=== PATIENT | female | born 1945 | race Caucasian/White ===

== ENCOUNTER 2018-12-01 15:54 | Inpatient (IN) ==
[2018-12-01] MEDS ORDERED: SODIUM CHLORIDE 0.9% 500 ML IV STA (16:25)
[2018-12-01 16:43] LABS: Basophils % 0.2 % (0.0-0.8); Eosinophils # 0.1 10*3/uL (0.0-0.87); Eosinophils % 0.8 % (0.00-10.9); Hematocrit 31.4 VOL% (35.7-47.0); Hemoglobin 9.1 GM/DL (12.0-16.0); Immature Granulocytes % 0.6 %; Immature Granulocytes Absolute 0.05 #; Lymphocytes % 22.6 % (21.3-54.2); Mean Corpuscular Hemoglobin 24 PG (27-34); Mean Corpuscular Volume 81.1 FL (87-102); Mean Platelet Volume 9.6 FL (9.6-12.0); Monocytes # 0.7 10*3/uL (0.11-0.8); Monocytes % 7.4 % (1.7-12.7); NRBC # 0.02 10*3/uL; Neutrophils # 6.1 10*3/uL (1.4-7.4); Neutrophils % 68.4 % (38.7-73.9); Platelet Count 253 T/CUMM (130-400); Red Blood Count 3.87 MC/CUMM (3.8-5.5); Red Cell Distribution Width 18.1 % (9.3-17.3); White Blood Count 8.9 T/CUMM (4-12)
[2018-12-01 17:03] LABS: Alanine Aminotransferase 18 U/L (13-56); Albumin 3.8 G/DL (3.4-5.0); Alkaline Phosphatase 96 U/L (45-117); Aspartate Amino Transferase 28 U/L (0-37); Bilirubin,Total < 0.39 MG/DL (0.2-1.0); Blood Urea Nitrogen 59 MG/DL (7-18); Calcium 8.5 MG/DL (8.5-10.1); Glucose 131 MG/DL (74-106); Osmolality,Calculated 275.1 MOS/KG (273-304); Potassium 5.4 MMOL/L (3.5-5.1); Sodium 128 MMOL/L (136-145); Total Protein 8.4 G/DL (6.4-8.3)
[2018-12-01 17:37] LABS: Amorphous Crystals,Urine Occasional /HPF (Few); Apearance,Urine Slightly Hazy (Clear); Bacteria,Urine Few /HPF (Few); Bilirubin,Urine Negative (Negative); Blood, Urine Small mg/dL (Negative); Glucose,Urine (UA) Negative (Negative); Ketones,Urine Negative (Negative); Nitrite,Urine Negative (Negative); Protein,Urine 30 MG/DL; Squamous Epithelial Cell,Urine Occasional /HPF (0-10); Urine Color Yellow (Yellow); Urine Specific Gravity 1.011 (1.001-1.035); Urine Urobilinogen < 2.0 EU/DL (0.2-1.0); WBC,Urine 2 /HPF (0-6)
[2018-12-01] MEDS: ALBUTEROL/IPRATROPIUM 3 ML NEB RESP TX SCH (18:58)
[2018-12-01] MEDS ORDERED: ONDANSETRON 4 MG/2 ML VIAL IV PRN (20:39)
[2018-12-01] MEDS: MEROPENEM 1,000 MG in SODIUM CHLORIDE 0.9% 100 ML IV SCH (22:11)
[2018-12-01] MEDS: SODIUM CHLORIDE 0.9% 1,000 ML IV SCH (22:14)
[2018-12-01] MEDS: ISOSORBIDE MONONITRATE 30 MG TABLET PO SCH ×2 (22:21→22:51)
[2018-12-01] MEDS: methylPREDNISolone SOD SUC 125 MG/2 ML VIAL IV SCH (22:21)
[2018-12-01] MEDS: GABAPENTIN 600 MG TABLET PO SCH (22:27)
[2018-12-01] MEDS: metFORMIN 500 MG TABLET PO SCH (22:27)
[2018-12-01] MEDS: ENOXAPARIN 30 MG/0.3 ML SYRINGE SUBCUT SCH (22:27)
[2018-12-01] MEDS: CARBIDOPA/LEVODOPA 25-100 MG TABLET PO SCH (22:29)
[2018-12-02] MEDS: ALBUTEROL/IPRATROPIUM 3 ML NEB RESP TX SCH ×4 (00:38→19:38)
[2018-12-02 01:10] LABS: Blood Urea Nitrogen 61 MG/DL (7-18); Calcium 8.4 MG/DL (8.5-10.1); Glucose 126 MG/DL (74-106); Osmolality,Calculated 275.1 MOS/KG (273-304); Sodium 128 MMOL/L (136-145); Troponin I < 0.015 NG/ML (0.00-0.045)
[2018-12-02 01:13] LABS: Potassium 6.3 MMOL/L (3.5-5.1)
[2018-12-02 01:22] LABS: Basophils % 0.2 % (0.0-0.8); Eosinophils % 0.4 % (0.00-10.9); Hemoglobin 9.2 GM/DL (12.0-16.0); Immature Granulocytes % 0.8 %; Immature Granulocytes Absolute 0.07 #; Lymphocytes # 0.8 10*3/uL (1.4-4.0); Lymphocytes % 9.7 % (21.3-54.2); Mean Corpuscular HGB Conc 28.2 GM/DL (32-36); Mean Corpuscular Hemoglobin 24 PG (27-34); Mean Corpuscular Volume 83.2 FL (87-102); Monocytes # 0.2 10*3/uL (0.11-0.8); Monocytes % 2.7 % (1.7-12.7); NRBC # 0.05 10*3/uL; Neutrophils # 7.2 10*3/uL (1.4-7.4); Neutrophils % 86.2 % (38.7-73.9); Platelet Count 156 T/CUMM (130-400); Red Blood Count 3.92 MC/CUMM (3.8-5.5); White Blood Count 8.4 T/CUMM (4-12)
[2018-12-02 01:29] LABS: Hematocrit 32.6 VOL% (35.7-47.0)
[2018-12-02] MEDS ORDERED: SODIUM POLYSTYRENE SULFATE 15 GM/60 ML BOTTLE PO ONE ×2 (01:35→09:00)
[2018-12-02] MEDS: methylPREDNISolone SOD SUC 125 MG/2 ML VIAL IV SCH ×3 (04:02→21:23)
[2018-12-02 04:11] LABS: Allen Test Positive
[2018-12-02 04:13] LABS: ABG Base Excess -9.4 MMOL/L (-2.5-2.5); ABG HCO3 16.6 MMOL/L (20-26); ABG PCO2 36.5 MM HG (35-48); ABG PH 7.271 (7.35-7.45); ABG PO2 47.9 MM HG (80-95); ABG TCO2 15.7 MMOL/L (23-27)
[2018-12-02 04:41] LABS: Platelet Estimate Decreased; Polychromasia Few
[2018-12-02] MEDS: LEVOTHYROXINE 50 MCG TABLET PO SCH (06:10)
[2018-12-02] MEDS: MEROPENEM 1,000 MG in SODIUM CHLORIDE 0.9% 100 ML IV SCH ×2 (07:30→21:22)
[2018-12-02] MEDS ORDERED: NON-FORMULARY MEDICATION (Omeprazole [Omeprazole] 20 MG) PO SCH (09:00)
[2018-12-02] MEDS: ASPIRIN EC 81 MG TABLET PO SCH (09:54)
[2018-12-02] MEDS: metFORMIN 500 MG TABLET PO SCH (09:54)
[2018-12-02] MEDS: PARoxetine 20 MG TABLET PO SCH (09:57)
[2018-12-02] MEDS: GABAPENTIN 600 MG TABLET PO SCH ×3 (09:57→21:42)
[2018-12-02] MEDS: CARBIDOPA/LEVODOPA 25-100 MG TABLET PO SCH ×2 (09:57→21:42)
[2018-12-02] MEDS: amLODIPine 5 MG TABLET PO SCH (09:58)
[2018-12-02] MEDS: ISOSORBIDE MONONITRATE 30 MG TABLET PO SCH ×2 (09:58→21:23)
[2018-12-02] MEDS: AMIODARONE 200 MG TABLET PO SCH (09:58)
[2018-12-02] MEDS: PANTOPRAZOLE 40 MG TABLET PO SCH (09:58)
[2018-12-02] MEDS ORDERED: ALBUTEROL/IPRATROPIUM 3 ML NEB RESP TX PRN (11:51)
[2018-12-02] MEDS ORDERED: GLUCAGON 1 MG VIAL IM PRN (11:55)
[2018-12-02] MEDS ORDERED: DEXTROSE 50% 25 GM/50 ML SYRINGE IV PRN (11:55)
[2018-12-02 13:07] LABS: ABG Base Excess -9.9 MMOL/L (-2.5-2.5); ABG HCO3 15.6 MMOL/L (20-26); ABG Oxygen Saturation 96.7 % (95-100); ABG PCO2 32.6 MM HG (35-48); ABG PH 7.298 (7.35-7.45); ABG PO2 101.8 MM HG (80-95); ABG TCO2 16.6 MMOL/L (23-27)
[2018-12-02] MEDS ORDERED: SODIUM CHLORIDE 0.9% 1,000 ML IV ONE (13:18)
[2018-12-02 16:32] LABS: Osmolality,Calculated 283.8 MOS/KG (273-304); Potassium 5.2 MMOL/L (3.5-5.1)
[2018-12-02] MEDS: INSULIN REGULAR 100 UNIT/ML SUBCUT SCH ×2 (18:19→21:23)
[2018-12-02] MEDS: ENOXAPARIN 30 MG/0.3 ML SYRINGE SUBCUT SCH (21:43)
[2018-12-02] MEDS: SODIUM CHLORIDE 23.4% CONC INJ 38.5 MEQ, SODIUM BICARB INJ 100 MEQ in STERILE WATER INJ... IV SCH (21:52)
[2018-12-03] MEDS: ALBUTEROL/IPRATROPIUM 3 ML NEB RESP TX SCH ×4 (01:05→19:10)
[2018-12-03] MEDS: methylPREDNISolone SOD SUC 125 MG/2 ML VIAL IV SCH ×2 (03:50→10:17)
[2018-12-03 05:19] LABS: Calcium 8.3 MG/DL (8.5-10.1); Osmolality,Calculated 284.8 MOS/KG (273-304); Potassium 4.7 MMOL/L (3.5-5.1)
[2018-12-03] MEDS: LEVOTHYROXINE 50 MCG TABLET PO SCH (06:03)
[2018-12-03 09:44] LABS: ABG Base Excess -5.8 MMOL/L (-2.5-2.5); ABG HCO3 19.3 MMOL/L (20-26); ABG Oxygen Saturation 97.6 % (95-100); ABG PCO2 35.9 MM HG (35-48); ABG PH 7.348 (7.35-7.45); ABG PO2 112.5 MM HG (80-95); ABG TCO2 20.4 MMOL/L (23-27); Allen Test Positive
[2018-12-03] MEDS: AMIODARONE 200 MG TABLET PO SCH (10:14)
[2018-12-03] MEDS: CARBIDOPA/LEVODOPA 25-100 MG TABLET PO SCH ×2 (10:15→21:38)
[2018-12-03] MEDS: PANTOPRAZOLE 40 MG TABLET PO SCH (10:15)
[2018-12-03] MEDS: PARoxetine 20 MG TABLET PO SCH (10:15)
[2018-12-03] MEDS: GABAPENTIN 600 MG TABLET PO SCH (10:15)
[2018-12-03] MEDS: ASPIRIN EC 81 MG TABLET PO SCH (10:16)
[2018-12-03] MEDS: amLODIPine 5 MG TABLET PO SCH (10:16)
[2018-12-03] MEDS: INSULIN REGULAR 100 UNIT/ML SUBCUT SCH ×3 (10:16→17:46)
[2018-12-03] MEDS: ISOSORBIDE MONONITRATE 30 MG TABLET PO SCH ×2 (10:16→21:38)
[2018-12-03] MEDS ORDERED: SODIUM CHLORIDE 23.4% CONC INJ 38.5 MEQ, SODIUM BICARB INJ 100 MEQ in STERILE WATER INJ... IV SCH (10:30)
[2018-12-03] MEDS: methylPREDNISolone SOD SUC 40 MG/1 ML VIAL IV SCH ×2 (12:59→22:00)
[2018-12-03] MEDS: CEFEPIME 1,000 MG in SYRINGE 1 EACH IV SCH (13:01)
[2018-12-03] MEDS: TAMSULOSIN 0.4 MG CAPSULE PO SCH (21:38)
[2018-12-03] MEDS: SODIUM CHLORIDE 0.9% 1,000 ML IV SCH (21:38)
[2018-12-03] MEDS: ENOXAPARIN 30 MG/0.3 ML SYRINGE SUBCUT SCH (23:11)
[2018-12-04] MEDS: ALBUTEROL/IPRATROPIUM 3 ML NEB RESP TX SCH ×4 (01:24→19:23)
[2018-12-04 05:42] LABS: Basophils % 0.1 % (0.0-0.8); Immature Granulocytes Absolute 0.07 #; Lymphocytes # 0.4 10*3/uL (1.4-4.0); Lymphocytes % 5.8 % (21.3-54.2); Mean Corpuscular HGB Conc 28.6 GM/DL (32-36); Mean Corpuscular Hemoglobin 23 PG (27-34); Mean Corpuscular Volume 81.2 FL (87-102); Mean Platelet Volume 8.8 FL (9.6-12.0); Monocytes # 0.4 10*3/uL (0.11-0.8); Monocytes % 5.1 % (1.7-12.7); NRBC # 0.06 10*3/uL; Neutrophils # 6.1 10*3/uL (1.4-7.4); Platelet Count 243 T/CUMM (130-400); Red Blood Count 3.45 MC/CUMM (3.8-5.5); Red Cell Distribution Width 18.3 % (9.3-17.3); White Blood Count 6.9 T/CUMM (4-12)
[2018-12-04 05:58] LABS: Calcium 8.7 MG/DL (8.5-10.1); Osmolality,Calculated 286.5 MOS/KG (273-304); Potassium 4.1 MMOL/L (3.5-5.1)
[2018-12-04 06:35] LABS: Hypochromasia 1+; Microcytosis 1+; Platelet Estimate Adequate
[2018-12-04] MEDS: methylPREDNISolone SOD SUC 40 MG/1 ML VIAL IV SCH ×3 (07:57→21:24)
[2018-12-04] MEDS: LEVOTHYROXINE 50 MCG TABLET PO SCH (08:15)
[2018-12-04] MEDS: SODIUM CHLORIDE 0.9% 1,000 ML IV SCH ×3 (10:35→21:22)
[2018-12-04] MEDS: PANTOPRAZOLE 40 MG TABLET PO SCH (13:51)
[2018-12-04] MEDS: PARoxetine 20 MG TABLET PO SCH (13:52)
[2018-12-04] MEDS: CARBIDOPA/LEVODOPA 25-100 MG TABLET PO SCH ×2 (13:52→21:23)
[2018-12-04] MEDS: ASPIRIN EC 81 MG TABLET PO SCH (13:53)
[2018-12-04] MEDS: amLODIPine 5 MG TABLET PO SCH (13:53)
[2018-12-04] MEDS: AMIODARONE 200 MG TABLET PO SCH (13:53)
[2018-12-04] MEDS: ISOSORBIDE MONONITRATE 30 MG TABLET PO SCH ×2 (13:54→21:23)
[2018-12-04] MEDS: CEFEPIME 1,000 MG in SYRINGE 1 EACH IV SCH (13:54)
[2018-12-04] MEDS: FLUCONAZOLE 100 MG TABLET PO SCH (13:54)
[2018-12-04] MEDS: INSULIN REGULAR 100 UNIT/ML SUBCUT SCH ×4 (14:12→21:25)
[2018-12-04] MEDS: ACETAMINOPHEN 325 MG TABLET PO PRN (21:23)
[2018-12-04] MEDS: TAMSULOSIN 0.4 MG CAPSULE PO SCH (21:23)
[2018-12-04] MEDS: NYSTATIN POWDER 15 GM BOTTLE TOP SCH (21:23)
[2018-12-04] MEDS: ENOXAPARIN 30 MG/0.3 ML SYRINGE SUBCUT SCH (21:25)
[2018-12-05] MEDS: ALBUTEROL/IPRATROPIUM 3 ML NEB RESP TX SCH ×4 (00:48→18:40)
[2018-12-05 04:46] LABS: Hematocrit 28.3 VOL% (35.7-47.0); Hemoglobin 8.2 GM/DL (12.0-16.0); Immature Granulocytes % 1.7 %; Immature Granulocytes Absolute 0.12 #; Lymphocytes # 0.4 10*3/uL (1.4-4.0); Lymphocytes % 5.9 % (21.3-54.2); Mean Corpuscular Hemoglobin 24 PG (27-34); Mean Platelet Volume 8.9 FL (9.6-12.0); Monocytes # 0.4 10*3/uL (0.11-0.8); Monocytes % 6.1 % (1.7-12.7); NRBC # 0.08 10*3/uL; Neutrophils # 6.1 10*3/uL (1.4-7.4); Neutrophils % 86.3 % (38.7-73.9); Platelet Count 245 T/CUMM (130-400); Red Blood Count 3.45 MC/CUMM (3.8-5.5); Red Cell Distribution Width 18.3 % (9.3-17.3); White Blood Count 7.1 T/CUMM (4-12)
[2018-12-05 05:06] LABS: Calcium 8.7 MG/DL (8.5-10.1); Osmolality,Calculated 286.1 MOS/KG (273-304); Potassium 4.3 MMOL/L (3.5-5.1)
[2018-12-05] MEDS: LEVOTHYROXINE 50 MCG TABLET PO SCH (06:36)
[2018-12-05] MEDS: SODIUM CHLORIDE 0.9% 1,000 ML IV SCH ×3 (07:52→23:17)
[2018-12-05] MEDS: INSULIN REGULAR 100 UNIT/ML SUBCUT SCH ×4 (09:30→22:12)
[2018-12-05] MEDS: PARoxetine 20 MG TABLET PO SCH (09:31)
[2018-12-05] MEDS: PANTOPRAZOLE 40 MG TABLET PO SCH (09:31)
[2018-12-05] MEDS: CARBIDOPA/LEVODOPA 25-100 MG TABLET PO SCH ×2 (09:31→22:12)
[2018-12-05] MEDS: ASPIRIN EC 81 MG TABLET PO SCH (09:31)
[2018-12-05] MEDS: ISOSORBIDE MONONITRATE 30 MG TABLET PO SCH ×2 (09:31→22:12)
[2018-12-05] MEDS: amLODIPine 5 MG TABLET PO SCH (09:31)
[2018-12-05] MEDS: AMIODARONE 200 MG TABLET PO SCH (09:31)
[2018-12-05] MEDS: methylPREDNISolone SOD SUC 40 MG/1 ML VIAL IV SCH ×2 (09:32→22:13)
[2018-12-05] MEDS: FLUCONAZOLE 100 MG TABLET PO SCH (09:32)
[2018-12-05] MEDS: NYSTATIN POWDER 15 GM BOTTLE TOP SCH ×2 (09:32→22:54)
[2018-12-05] MEDS: CEFEPIME 1,000 MG in SYRINGE 1 EACH IV SCH (12:20)
[2018-12-05] MEDS: ENOXAPARIN 30 MG/0.3 ML SYRINGE SUBCUT SCH (22:11)
[2018-12-05] MEDS: ACETAMINOPHEN 325 MG TABLET PO PRN (22:11)
[2018-12-05] MEDS: TAMSULOSIN 0.4 MG CAPSULE PO SCH (22:12)
[2018-12-05] MEDS: SODIUM CHLORIDE 23.4% CONC INJ 38.5 MEQ, SODIUM BICARB INJ 100 MEQ in STERILE WATER INJ... IV SCH (23:17)
[2018-12-05] MEDS: MEROPENEM 1,000 MG in SODIUM CHLORIDE 0.9% 100 ML IV SCH (23:17)
[2018-12-06] MEDS: SODIUM CHLORIDE 0.9% 1,000 ML IV SCH ×3 (03:51→13:35)
[2018-12-06] MEDS: LEVOTHYROXINE 50 MCG TABLET PO SCH (06:09)
[2018-12-06] MEDS: ALBUTEROL/IPRATROPIUM 3 ML NEB RESP TX SCH ×4 (06:59→20:18)
[2018-12-06] MEDS: INSULIN REGULAR 100 UNIT/ML SUBCUT SCH ×3 (10:46→17:49)
[2018-12-06] MEDS: amLODIPine 5 MG TABLET PO SCH (10:47)
[2018-12-06] MEDS: AMIODARONE 200 MG TABLET PO SCH (10:47)
[2018-12-06] MEDS: ASPIRIN EC 81 MG TABLET PO SCH (10:47)
[2018-12-06] MEDS: ISOSORBIDE MONONITRATE 30 MG TABLET PO SCH ×2 (10:47→21:49)
[2018-12-06] MEDS: FLUCONAZOLE 100 MG TABLET PO SCH (10:47)
[2018-12-06] MEDS: PARoxetine 20 MG TABLET PO SCH (10:47)
[2018-12-06] MEDS: PANTOPRAZOLE 40 MG TABLET PO SCH (10:48)
[2018-12-06] MEDS: CARBIDOPA/LEVODOPA 25-100 MG TABLET PO SCH ×2 (10:48→21:49)
[2018-12-06] MEDS: methylPREDNISolone SOD SUC 40 MG/1 ML VIAL IV SCH ×2 (10:51→21:50)
[2018-12-06] MEDS: NYSTATIN POWDER 15 GM BOTTLE TOP SCH ×2 (10:57→21:50)
[2018-12-06] MEDS: CEFEPIME 1,000 MG in SYRINGE 1 EACH IV SCH (11:49)
[2018-12-06] MEDS: MAGNESIUM HYDROXIDE SUSP 30 ML UDCUP PO PRN (17:50)
[2018-12-06] MEDS: ENOXAPARIN 30 MG/0.3 ML SYRINGE SUBCUT SCH (21:49)
[2018-12-06] MEDS: TAMSULOSIN 0.4 MG CAPSULE PO SCH (21:49)
[2018-12-07] MEDS: SODIUM CHLORIDE 0.9% 1,000 ML IV SCH (00:20)
[2018-12-07] MEDS: ALBUTEROL/IPRATROPIUM 3 ML NEB RESP TX SCH ×4 (02:18→21:30)
[2018-12-07] MEDS: LEVOTHYROXINE 50 MCG TABLET PO SCH (06:40)
[2018-12-07] MEDS: ASPIRIN EC 81 MG TABLET PO SCH (10:28)
[2018-12-07] MEDS: AMIODARONE 200 MG TABLET PO SCH (10:29)
[2018-12-07] MEDS: amLODIPine 5 MG TABLET PO SCH (10:29)
[2018-12-07] MEDS: ISOSORBIDE MONONITRATE 30 MG TABLET PO SCH ×2 (10:29→21:51)
[2018-12-07] MEDS: FLUCONAZOLE 100 MG TABLET PO SCH (10:29)
[2018-12-07] MEDS: PARoxetine 20 MG TABLET PO SCH (10:29)
[2018-12-07] MEDS: CARBIDOPA/LEVODOPA 25-100 MG TABLET PO SCH ×2 (10:30→21:51)
[2018-12-07] MEDS: PANTOPRAZOLE 40 MG TABLET PO SCH (10:30)
[2018-12-07] MEDS: MAGNESIUM HYDROXIDE SUSP 30 ML UDCUP PO PRN (10:32)
[2018-12-07] MEDS: INSULIN REGULAR 100 UNIT/ML SUBCUT SCH ×5 (10:33→21:50)
[2018-12-07] MEDS: methylPREDNISolone SOD SUC 40 MG/1 ML VIAL IV SCH ×2 (10:35→21:50)
[2018-12-07] MEDS: NYSTATIN POWDER 15 GM BOTTLE TOP SCH (10:41)
[2018-12-07] MEDS: CEFEPIME 1,000 MG in SYRINGE 1 EACH IV SCH (11:36)
[2018-12-07] MEDS: ENOXAPARIN 30 MG/0.3 ML SYRINGE SUBCUT SCH (21:49)
[2018-12-07] MEDS: TAMSULOSIN 0.4 MG CAPSULE PO SCH (21:51)
[2018-12-08] MEDS: ALBUTEROL/IPRATROPIUM 3 ML NEB RESP TX SCH ×2 (01:47→07:54)
[2018-12-08] MEDS: LEVOTHYROXINE 50 MCG TABLET PO SCH (06:33)
[2018-12-08] MEDS: NYSTATIN POWDER 15 GM BOTTLE TOP SCH ×2 (06:33→09:40)
[2018-12-08] MEDS: INSULIN REGULAR 100 UNIT/ML SUBCUT SCH ×2 (09:38→12:42)
[2018-12-08] MEDS: AMIODARONE 200 MG TABLET PO SCH (09:39)
[2018-12-08] MEDS: ASPIRIN EC 81 MG TABLET PO SCH (09:39)
[2018-12-08] MEDS: amLODIPine 5 MG TABLET PO SCH (09:40)
[2018-12-08] MEDS: FLUCONAZOLE 100 MG TABLET PO SCH (09:40)
[2018-12-08] MEDS: PANTOPRAZOLE 40 MG TABLET PO SCH (09:40)
[2018-12-08] MEDS: ISOSORBIDE MONONITRATE 30 MG TABLET PO SCH (09:40)
[2018-12-08] MEDS: PARoxetine 20 MG TABLET PO SCH (09:40)
[2018-12-08] MEDS: CARBIDOPA/LEVODOPA 25-100 MG TABLET PO SCH (09:41)
[2018-12-08] MEDS: methylPREDNISolone SOD SUC 40 MG/1 ML VIAL IV SCH (09:41)
[2018-12-08] MEDS: MAGNESIUM HYDROXIDE SUSP 30 ML UDCUP PO PRN (09:50)
[2018-12-08] MEDS ORDERED: CEFEPIME 1,000 MG in SYRINGE 1 EACH IV SCH (10:00)
[2018-12-08 12:02] VITALS: BP 133/87
== END 2018-12-08 13:45 | disposition home health service (06) | DRG 190 ==
LOC: EDUNIT# → EDBD → N.ED 15:54 → N.EDINP 18:36 → SUATTDRO 18:36 → N.2E 19:28 → N.TELEN 12-02 02:54
PROVIDERS: ADMIT Hospitalist; ATTEND Hospitalist